=== PATIENT | male | born 1955 | race Caucasian/White ===

== ENCOUNTER 2018-05-31 10:44 | Inpatient (IN) ==
[2018-05-31] MEDS ORDERED: CeFAZolin Syr 2,000MG/20 ML 2,000 MG/20 ML SYRINGE IVPB ONE (11:10)
[2018-05-31] MEDS ORDERED: Ringers Solution, Lactated 1,000 ML IVC SCH ×2 (11:15→12:15)
[2018-05-31] MEDS ORDERED: Famotidine 20 MG/2 ML VIAL IVP ONE (11:16)
[2018-05-31] MEDS ORDERED: Acetaminophen IV 1,000 MG/100 ML INFUS..BTL IVPB ONE (11:17)
[2018-05-31] MEDS ORDERED: Pregabalin 75 MG CAPSULE PO ONE (11:17)
--- NOTE | 2018-05-31 11:20 | Anesthesia Evaluation PreOp ---
Date of Encounter: 05/31/18 Time of Encounter: 11:18 - Past History Planned Operation: Robotic assisted Lap Prostatectomy Cardiac History: Hyperlipidemia Other Medical History: Renal (Hx Kidney stone) Anesthesia History: No Prior Anesthetic Complications, Past Anesthesia (Kidney stone w/ stent, Colonoscopy) Alcohol Use: occasionally ("1-2 drinks/4 times per week") Drug use: none Medications and Allergies HYDROcodone/Acet 5/325 mg [[place] 5-325 mg] 1 tab PO Q4H PRN 3 Days #10 tab 03/20 [Rx] 3 Allergy/AdvReac Type Severity Reaction Status Date / Time No Known Allergies Allergy Verified 03/20/18 13:16 - Meds/Allergy Pre-op Review Medications Reviewed: Yes Allergies Reviewed: Yes Beta Blockers on Current Med List: No Anesthesia Results - Labs Laboratory Tests 02/02/18 05/17/18 05/17/18 10:41 08:00 08:00 WBC 5.2 Hgb 15.3 Hct 46.1 Plt Count 228 Sodium 139 Potassium 5.0 Chloride 106 Carbon Dioxide 28 BUN 16 Creatinine 1.07 Est GFR (Non-Af Amer) > 60 Anesthesia Exam O2 Sat Height 1.83 m Height 1.83 m Weight 84.368 kg Weight 84.368 kg O2 Sat by Pulse Oximetry 98 Vital Signs Temp Pulse Resp BP Pulse Ox 98.1 F 74 18 131/82 98 05/31/18 11:09 05/31/18 11:09 05/31/18 11:09 05/31/18 11:09 05/31/18 11:09 Height: 6' Weight: 186# BMI = 25.2 NPO (# of Hours): Mnoc - HEENT Pupil (Motor): Pupils equal, EOMI Mallampati: II Teeth: Normal Oral Opening: Greater than 3 - ENVELOPE STAMPING MACHINE OPERATOR LOC: Oriented ENVELOPE STAMPING MACHINE OPERATOR Motor: Normal RUE, Normal LUE, Normal RLE, Normal LLE, Normal Face ENVELOPE STAMPING MACHINE OPERATOR Sensory: Normal: RUE, LUE, RLE, LLE, Face - Cardiac Rhythm: Regular Murmur: None - Pulmonary Breath Sounds: bilateral Clear Respiratory Effort: Symmetrical Anesthesia Assess/Plan ASA Score: 3 Modified Otho Scale for Level of Consciousness: Cooperative, oriented, and tranquil Anesthetic Plan: General Monitoring Plan: Standard Monitors Recovery Plan: PACU Anes Supervising Prov Stmt: Pt seen/evaluated, r&B discussed, questions answered and consent obtained. Stefany Feng MD
--- NOTE | 2018-05-31 11:20 | History & Physical Report ---
Date of Encounter: 05/31/18 Time of Encounter: 11:20 24 Hour HP Update - Instructions Instructions: If the History and Physical is less than 30 days old and was completed prior to A.M. admission and or procedure and has NOT been updated on calendar day of procedure please complete this update prior to performing procedure. - Update Patient reports changes in Medical Condition: No Changes in examination, assessment, or condition: No Changes in Medication: No Preop tests/diagnostics Reviewed: Yes Surgery Remains Indicated: Yes Consent for Planned Operative Procedure(s) Verified: Yes - Pre-Operative Checklist Preoperative Checklist Indicated: Yes Prophylactic Antibiotic Ordered: Yes Home Medications Include Beta Chris: No Is VTE Prophylaxis Indicated?: Yes
[2018-05-31] MEDS ORDERED: Water for inj. (sterile) 10 ML IV ONE (11:52)
[2018-05-31] MEDS ORDERED: Lidocaine -MPF 4% 5 ML AMPUL ONE (11:52)
[2018-05-31] MEDS ORDERED: *HR* FentaNYL (PF) 100 MCG/2 ML VIAL ONE ×2 (11:54→13:45)
[2018-05-31] MEDS ORDERED: *HR* Propofol 200 MG/20 ML VIAL IVP ONE (11:54)
[2018-05-31] MEDS ORDERED: Lidocaine -MPF 2% 2 ML VIAL ONE (11:54)
[2018-05-31] MEDS ORDERED: Ondansetron 4 MG/2 ML VIAL ONE ×2 (11:54→15:48)
[2018-05-31] MEDS ORDERED: Dexamethasone 4 MG/ML VIAL ONE (11:54)
[2018-05-31] MEDS ORDERED: *HR* Midazolam HCl 2 MG/2 ML VIAL ONE (11:54)
[2018-05-31] MEDS ORDERED: Naloxone 0.4 MG/ML INJ IVP PRN ×2 (12:12→18:07)
[2018-05-31] MEDS ORDERED: *HR* Promethazine 25 MG/ML VIAL IVP PRN (12:12)
[2018-05-31] MEDS ORDERED: *HR* Labetalol 100 MG/20 ML MDV IVP PRN (12:12)
[2018-05-31] MEDS ORDERED: *HR* Morphine 2 MG/ML SYRINGE IVP PRN (12:12)
[2018-05-31] MEDS ORDERED: Albuterol 2.5 MG/3 ML NEBULIZER IH ONE (12:12)
[2018-05-31] MEDS ORDERED: *HR* Meperidine 25 MG/ML SYRINGE IVP PRN (12:12)
[2018-05-31] MEDS ORDERED: Ondansetron 4 MG/2 ML VIAL IVP ONE (12:12)
[2018-05-31] MEDS ORDERED: *HR* PHENYLEPHRINE 1,000 MCG/10 ML SYRINGE IVP ONE ×2 (12:57→16:19)
[2018-05-31] MEDS ORDERED: *HR* Rocuronium Bromide 50 MG/5 ML VIAL ONE (13:40)
--- NOTE | 2018-05-31 16:49 | Operative Note ---
Date of procedure: 05/31/18 Pre-op diagnosis: Prostate cancer Post-op diagnosis: same Procedure: Robotic-assisted radical prostatectomy with bilateral pelvic lymph node dissection Implants: 20-[place] Schroeder catheter. 19-[place] Sanchez drain. Complications: None Anesthesia: DB Surgeon: Giuseppe Benz Was there an office manager executive assistant present: Yes Director Of Cardiac Cath Lab: Vitaliy Luke Director Of Cardiac Cath Lab Other: claudia lee Estimated blood loss (cc): 150 Specimen: see operative note Condition: stable Disposition: PACU Procedure in Detail: INDICATIONS FOR PROCEDURE: Mr. Mix is a 63 year-old male with history of elevated PSA. He was found on prostate needle biopsy to have [place] 3+4 prostate cancer along the left side. He is now presenting for robotic assisted prostatectomy with bilateral pelvic lymph node dissection. He was informed of the risks of the procedure including but not limited to bleeding, infection, injury to other structures, need for further procedures, lymphocele, urinary incontinence, urine leak, erectile dysfunction, bladder neck contracture, rectal injury, and the risk of anesthesia. He is willing to proceed. PROCEDURE: After informed consent was obtained, the patient was taken to the operating room, placed supine on the table. He was given IV antibiotics for antibiotic coverage. He had ULYSSES's and SCD's placed on the lower extremities for DVT prophylaxis. Induction of general anesthesia was performed. The arms were tucked and he was placed in lithotomy position. He was secured to the OR table with padding. A 10mm incision was made in the infraumbilical region.. The Veress needle was introduced. The water drop test passed. Pneumoperitoneum was initiated with low pressures initially. The abomen was insufflated. I then placed a 12mm camera port through this incision using the visual obturator using the 8 mm robotic camera. Once the trocar was in place, the 0 degree camera for the robot was placed in the field and remaining trocars were placed. Robotic ports were placed x 2 on the right side. We placed another robotic port to the left of the umbilicus. We also placed a 12mm port in the left lower quadrant and a 5mm port superior and to the left of the umbilicus. Once all trocars were in place, the robot was docked to the patient and the monopolar scissors were placed on the right robotic arm. The bipolar [place] was in the left robotic arm and the Prograsp in the 4th arm. There is a small amount of lysis of adhesions performed along the anterior abdominal wall. Those attachments were taken down. We initially retracted the bowel with the 4th arm. The medial umbilical ligaments were cauterized and the bladder was taken down off the anterior abdominal wall using electrocautery. The bladder was dissected down to the endopelvic fascia. Attention was then turned to the left pelvic sidewall. The external iliac vein was identified. Careful dissection then isolated the lymph node packet and the obturator nerve was identified. Weck clips were placed at the superior aspect of the lymph node packet. They were also placed at the inferior aspect of the lymph node packet. An identical approach was performed on the left side. The node packets were sent separately. The bladder was then grasped with a 4th arm and retracted cephalad. We then swept the periprostatic fat off the prostate as well as the pelvic sidewall. That fat was sent separately to pathology. We then incised the endopelvic fascia on both sides and carried the incision up to the prostatic apex, sweeping the levator fibers off of the prostate. The puboprostatic ligaments were carefully incised. We then placed an 0 Vicryl suture through the dorsal venous complex and tied it down with a surgeon's knot. Once the dorsal venous complex was ligated, we then turned our attention to the bladder neck which was incised with the monopolar cautery until the catheter was visualized at the bladder neck. The posterior bladder neck was then opened using the cautery until the space between the prostate and the bladder neck was visualized. Eventually, the vas deferens and seminal vesicals were encountered. The vas deferens were cauterized and divided. We pulled the seminal vesicles up into the field to help retract the prostate in cephalad direction. Denonvillier's fascia was dissected off the prostate posteriorly. The left nerve bundle was then released sharply. I carefully divided the pedicles using multiple Hem-o- netta clips to clip the larger prostatic pedicle. Once the pedicles were controlled the nerves were carefully dissected off the posterior aspect of the prostate. Attention was then turned to the right side. The nerve bundle was again released sharply and the pedicles were controlled using Hem-o-netta clips. The nerve bundle was then carefully dissected off the posterior aspect of the prostate. We then used the 4th arm to place the prostate on stretch in cephalad direction. We then transected the dorsal venous complex. The stitch over the dorsal venous complex came off. There was a mild amount of bleeding from the dorsal vein. Once I got to the urethra this was incised with cold scissors. I cut across the urethra until the catheter was visualized. The catheter was removed and the posterior urethra was transected. The prostate was then freed. I then oversewed the dorsal venous complex using an 0 Vicryl suture in a running fashion. Hemostasis was adequate. The bladder neck was identified and there appeared to be some excess tissue located there. I removed that and sent it as a bladder neck margin. The urethral vesicle anastomosis was then performed with a 3-0 V-Netta suture in running fashion starting at 6 o'clock position. With two sutures tied together we then ran the right side up about alf. The left side was then run around until the bladder was reanastamosed to the urethra. The final 20 [place] catheter was placed into the bladder and balloon filled with 15 mL of sterile water. The bladder was irrigated. No leak was identified. A 19 [place] Sanchez drain was placed through the trocar down into the pelvis. The trocar was removed and drain sewn in place with a suture. The robot was then undocked from the patient. Using laparoscopic instruments I then moved the string from the Endo Catch bag over to the umbilical port with the assistance of the 8 mm robotic camera. After extending the incision slightly with the electrocautery the EndoCatch bag was then removed from the camera port. The abdominal fascia was then closed in an interrupted fashion with 0 Vicryl suture. All incisions were instilled with 0.25% Marcaine. The remaining trocars were removed under direct vision and all incisions were then closed with 4-0 Monocryl in subcuticular fashion. The patient was then awakened from general anesthesia and brought to the recovery room in good condition. All sponge, needle, and instrument counts were correct. Pathology: 1. left pelvic lymph node 2. Right pelvic lymph node 3. Bladder neck margin 4. Fat over top prostate. 5. Prostate
[2018-05-31] MEDS ORDERED: Ketorolac 15 MG/ML VIAL IVP PRN (18:07)
[2018-05-31] MEDS ORDERED: OXYCODONE Oral CONC 10 MG/0.5 ML ORAL.SYG SL PRN (18:07)
[2018-05-31] MEDS ORDERED: *HR* OxyCODONE Immed Rel 5 MG TABLET PO PRN (18:07)
[2018-05-31] MEDS ORDERED: Acetaminophen 325 MG TABLET PO PRN (18:07)
[2018-05-31] MEDS ORDERED: Ondansetron 4 MG/2 ML VIAL IVP PRN (18:07)
[2018-05-31] MEDS: 0.9 % Sodium Chloride 1,000 ML IVC SCH (18:49)
[2018-05-31] MEDS: *HR* Heparin 5,000 UNIT/ML VIAL SQ SCH (18:50)
--- NOTE | 2018-05-31 19:08 | Anesthesia Evaluation Post Op ---
Date of Encounter: 05/31/18 Time of Encounter: 18:10 - Vital Signs Vital Signs: Vital Signs Temp Pulse Resp BP Pulse Ox 05/31/18 18:50 97.5 F L 88 16 118/77 99 05/31/18 18:20 97.7 F 89 16 113/81 99 05/31/18 18:11 97.8 F 89 14 131/88 99 05/31/18 18:01 97.8 F 95 14 117/79 100 05/31/18 17:51 88 14 126/84 99 05/31/18 17:41 98 16 131/80 98 05/31/18 17:31 98.1 F 96 16 126/81 97 05/31/18 17:21 101 16 136/90 99 05/31/18 17:11 90 16 120/89 99 05/31/18 17:01 98.5 F 97 16 130/88 98 05/31/18 11:09 98.1 F 74 18 131/82 98 Intake and Output 05/31/18 05/31/18 05/31/18 07:59 15:59 23:59 Intake Total 20 / 20 Output Total 150 / 150 Balance 20 / 20 -150 / -150 Intake: IV Fluids 20 / 20 Ancef Syringe 2,000 MG/20 ML 2, 20 / 20 000 mg In 20 ml @ 200 mls/hr IVPB PREOP ONE Rx#:[id number] Output: Estimated Blood Loss 150 / 150 Wound Drainage 0 / 0 Right Lower Abdomen 0 / 0 Other: Weight 84.368 kg Patient Weight 05/31/18 23:59 Weight 84.368 kg - Lungs Lungs: Clear Ascult./Percussion - Airway Airway: Non-obstructed - Cardiovascular Regular Rate - Mental Status Mental Status: Alert & Oriented, Answers Appropriately - Pain Pain Scale: 5 Pain Scale used: Numeric (1 - 10) - Nausea Vomiting Nausea Vomiting: Not Present - Hydration Hydration: Ice chips, Schroeder catheter - Discharge PostOp Status: Transfer Patient to floor Anes Supervising Prov Stmt: Pt seen/evaluated, VSS And has met criteria for discharge to floor. - MD Ping
[2018-06-01] MEDS: 0.9 % Sodium Chloride 1,000 ML IVC SCH ×3 (02:57→17:16)
[2018-06-01] MEDS: *HR* Heparin 5,000 UNIT/ML VIAL SQ SCH ×2 (05:09→17:23)
[2018-06-01 05:51] LABS: Hematocrit 37.3 % (37.5-50.1); Hemoglobin 12.3 g/dL (12.9-16.9); Mean Corpuscular Hemoglobin 31.7 pg (28.0-33.3); Mean Corpuscular Volume 96.1 fL (83.0-100.0); Mean Platelet Volume 9.5 fL (9.4-12.4); Platelet Count 204 K/mcL (140-400); Red Blood Count 3.88 M/mcL (4.19-5.50); Red Cell Distribution Width 13.2 % (11.5-14.5)
[2018-06-01 07:21] LABS: BUN/Creatinine Ratio 14 (6-26); Blood Urea Nitrogen 15 mg/dL (8-23); Calcium 8.6 mg/dL (8.6-10.3); Carbon Dioxide 23 mEq/L (23-29); Chloride 110 mEq/L (98-107); Glucose 150 mg/dL (70-105); Osmolality,Calculated 292 (280-300); Potassium 4.1 mEq/L (3.5-5.1); Sodium 139 mEq/L (136-145); eGFR For Non-African Americans > 60 (> 60)
--- NOTE | 2018-06-01 07:56 | Urology Progress Note ---
Date of Encounter: 06/01/18 Time of Encounter: 07:54 - Assessment and Plan (1) Prostate cancer Current Visit: Yes Status: Acute Assessment and plan: 63-year-old man with a history of prostate cancer status post robotic-assisted radical prostatectomy. Postoperative day #1. 1. Continue ambulation 3-4 times per day. 2. We will monitor FIFI output today. 3. Continue Schroeder catheter. 4. Advance diet as tolerated. 5. He revealed a potentially discharge home later today or tomorrow depending upon how well he tolerates diet. Anticipate to remove FIFI drain later today if outputs remained low. (2) DVT prophylaxis Current Visit: Yes Status: Acute Assessment and plan: Continue subcutaneous heparin. Progress Note Narrative: 63-year-old man status post robotic-assisted radical prostatectomy. Postoperative day #1. He says he is doing well. His pain is well controlled today. He is tolerating clear liquids. Drain output has been on the lower side. I did ambulate him. His urine became a little bit more bloody after ambulation. Drain output increased slightly. He tolerated the ambulation. Objective Initial Vital Signs Temp Pulse Resp BP Pulse Ox 98.1 F 74 18 131/82 98 05/31/18 11:09 05/31/18 11:09 05/31/18 11:09 05/31/18 11:09 05/31/18 11:09 - General physical appearance Present: well developed, well nourished, no distress - Respiratory Present: normal respiratory effort - Abdomen Present: soft (Appropriately tender, incisions are clean, dry, and intact. FIFI was sanguinous drainage.) - Genitourinary Present: normal penis with no external lesions (Catheter in place with clear to light pink urine.) - Labs 06/01/18 05:16 06/01/18 05:16 Diabetes panel 06/01/18 Range/Units 05:16 Sodium 139 (136-145) mEq/L Potassium 4.1 (3.5-5.1) mEq/L Chloride 110 H (98-107) mEq/L Carbon Dioxide 23 (23-29) mEq/L BUN 15 (8-23) mg/dL Creatinine 1.08 (0.70-1.30) mg/dL Glucose 150 H (70-105) mg/dL Calcium 8.6 (8.6-10.3) mg/dL Calcium panel 06/01/18 Range/Units 05:16 Calcium 8.6 (8.6-10.3) mg/dL Pituitary panel 06/01/18 Range/Units 05:16 Sodium 139 (136-145) mEq/L Potassium 4.1 (3.5-5.1) mEq/L Chloride 110 H (98-107) mEq/L Carbon Dioxide 23 (23-29) mEq/L BUN 15 (8-23) mg/dL Creatinine 1.08 (0.70-1.30) mg/dL Glucose 150 H (70-105) mg/dL Calcium 8.6 (8.6-10.3) mg/dL Adrenal panel 06/01/18 Range/Units 05:16 Sodium 139 (136-145) mEq/L Potassium 4.1 (3.5-5.1) mEq/L Chloride 110 H (98-107) mEq/L Carbon Dioxide 23 (23-29) mEq/L BUN 15 (8-23) mg/dL Creatinine 1.08 (0.70-1.30) mg/dL Glucose 150 H (70-105) mg/dL Calcium 8.6 (8.6-10.3) mg/dL - VTE Documentation of Mechanical Device: Graduated compression elastic hosiery Consult Discharge Plan - Plan Referrals: Gurmeet Eckert MD [Primary Care Provider] -
[2018-06-02] MEDS: 0.9 % Sodium Chloride 1,000 ML IVC SCH ×2 (01:31→09:33)
[2018-06-02] MEDS: *HR* Heparin 5,000 UNIT/ML VIAL SQ SCH (04:43)
[2018-06-02 06:47] VITALS: BP 129/78
--- NOTE | 2018-06-02 08:02 | Discharge Summary ---
Orders not resulted at time of discharge: Pending orders 05/31/18 16:31 Surgical Pathology [PTH] Routine Date of Encounter: 06/02/18 Time of Encounter: 08:06 - Discharge Diagnosis (1) Prostate cancer Priority: Primary Status: Resolved - Hospital Course Hospital course: Mr. Mix is a 63 year old male POD#2 robotic prostatectomy. tolerating diet. passing flatus. FIFI out. no evidence of urine leak. ambulating. pain controlled. urien clear. - Time Spent with Patient Total time spent providing and/or coordinating discharge services: - Discharge Medications Prescriptions: HYDROcodone/Acet 5/325 mg [[place] 5-325 mg] 1 tab PO Q4H PRN 5 Days #15 tab PRN Reason: Pain Home Medications: Docusate [Colace] 100 mg PO BID PRN #30 capsule 06/02/18 [Rx] HYDROcodone/Acet 5/325 mg [[place] 5-325 mg] 1 tab PO Q4H PRN 5 Days #15 tab 06/02 [Rx] Allergies/Adverse Reactions: 3 Allergy/AdvReac Type Severity Reaction Status Date / Time No Known Allergies Allergy Verified 05/31/18 14:21 Date of admission: 05/31/18 13:11 Primary care physician: Gurmeet Eckert MD Discharging clinician: Roshan Escalante Anticipated date of discharge: 06/02/18 Exam Initial Vital Signs Temp Pulse Resp BP Pulse Ox 98.1 F 74 18 131/82 98 05/31/18 11:09 05/31/18 11:09 05/31/18 11:09 05/31/18 11:09 05/31/18 11:09 - General physical appearance Present: well developed, no distress - Additional Findings abd soft. minimal FIFI drainage. removed by urine clear. - Patient Status Disposition: Home, Self-Care Condition: Good Functional capacity at discharge: independent ambulation Overall status at discharge: patient is progressing back to baseline - Discharge Instructions Follow Up With: Gurmeet Eckert MD [Primary Care Provider] - Giuseppe Benz MD [Partnered Physician] - (scheduled ) Additional Instructions: Discharge with catheter in place. provide leg bag if the patient desires Catheter should not be removed for any reason Small amounts of blood in the urine can be normal Stay hydrated and avoid constipation. Use stool softeners if necessary No driving Okay to shower. No baths or swimming Okay to ambulate for exercise and walk upstairs No heavy lifting, heavy activity or excessive straining. Okay to leave incisions open to air. No need to place antibiotic ointment okay to leave drain site open as long as its dry - Diet and Activity Activity: other Diet: advance to your usual diet - VTE Documentation of Mechanical Device: Intermittent pneumatic compression device
== END 2018-06-02 12:00 | disposition home or self-care (01) | DRG 708 ==
LOC: SAMDAY 10:44 → 3ANU 13:11
PROVIDERS: ADMIT Urology; ATTEND Urology